=== PATIENT | male | born 2005 | race Caucasian/White ===

== ENCOUNTER 2025-01-10 12:53 | Observation (INO) ==
[2025-01-10 13:36] LABS: Appearance Urine Clear (Clear); Glucose Urine UA 3+ (Negative)
[2025-01-10 13:38] LABS: Hematocrit (blood only) 44.0 % (42.0-52.0); Hemoglobin 15.8 g/dl (14.0-18.0); Immature Granulocytes # (auto) 0.02 K/uL (0.01-0.20); Immature Granulocytes % (auto) 0.5 %; Mean Corpuscular Hemoglobin 32.2 pg (25.0-34.0); Mean Corpuscular Volume 89.6 fL (80.0-100.0); Platelet Count 218 K/uL (130-400); RDW Standard Deviation 38.7 fL (36.4-46.3); Red Blood Count 4.91 M/uL (4.70-6.10); White Blood Count 4.34 K/ul (4.8-10.8)
[2025-01-10] MEDS: SODIUM CHLORIDE 0.9% 1,000 ML IV ONE (13:38)
--- NOTE | 2025-01-10 13:55 | Emergency Department Note ---
Impression & Plan Acute hyperglycemia, Noncompliance with medications, Depression ED Provider Note NAME: MIKE ESTRADA AGE: 19 SEX: M : 2005 ARRIVES VIA: Walk-In INFORMANT: Patient, the patient's mother ED PROVIDER(S): Conrado Cerda DO CHIEF COMPLAINT: Hyperglycemia HPI: The patient is a 19-year-old male who presented to the emergency department for an evaluation of hyperglycemia. The patient recently transitioned back to subcu insulin. He states that he has been using his insulin but his blood sugars are very difficult to control. The patient went to see his derrick worker today and was sent to the emergency department for admission. The patient denies having any chest pain. He denies having any nausea or vomiting. He denies having any fever or chills. He has had some polyuria polydipsia. ROS: See above HPI for pertinent positives & negatives. A total of 10 systems reviewed and were otherwise negative. PAST MEDICAL HISTORY: See Below PAST SURGICAL HISTORY: See Below FAMILY HISTORY: See Below SOCIAL HISTORY: See Below HOME MEDICATIONS: See Below ALLERGIES: See Below VITALS: See Below PHYSICAL EXAMINATION: GENERAL: Patient is awake alert in no acute distress patient is resting comfortably and showing no signs of anxiety EYES: The conjunctivae are clear. The pupils are round and reactive. EARS, NOSE, MOUTH AND THROAT: The nose is without any evidence of any deformity. NECK: The neck is nontender and supple. RESPIRATORY: Normal respiratory effort is noted there is no evidence of wheezing rhonchi or rales CARDIOVASCULAR: Regular rate and rhythm noted there no murmurs rubs or gallops normal S1 normal S2. GASTROINTESTINAL: The abdomen is soft. Abdomen is nontender. MUSCULOSKELETAL/EXTREMITIES: There is no evidence of gross deformity full range of motion is noted in the hips and shoulders. SKIN: There is no obvious evidence of any rash. There are no petechiae, pallor or cyanosis noted. NEUROLOGIC: Patient is awake alert and oriented x3 strength is symmetric patellar reflexes are 2+ bilaterally MEDICAL DECISION MAKING: The patient is a 19-year-old male who has a history of insulin-dependent diabetes who presented to the emergency department for an evaluation of elevated blood sugar. The patient presented directly from his derrick worker office. The patient was felt to be noncompliant with medications and has been very depressed. His derrick worker was very concerned about this situation and was concerned for the patient's safety as well as the patient's mental health. For this reason I discussed the patient's condition with the on-call [facility]. They have agreed to evaluate the patient in the emergency department for further management and disposition. The patient was treated with IV insulin and IV fluids. Blood sugar was significantly improved. Triage Nursing notes reviewed. Prior medical records reviewed Vital Signs: reviewed and remarkable for no significant abnormalities Differential diagnosis: Infection, dehydration, metabolic abnormality, hypo/hyperglycemia, electrolyte disturbance, anemia, hypoxia, cardiac sources, intracerebral event, toxicologic, neurologic, as well as other pathologies. ER treatment provided: See below Diagnostics interpreted by me: ECG: none Cardiac Monitoring: An order was placed for continuous cardiac monitoring. The monitor shows a rate of 77 beats with sinus rhythm. Laboratory studies: As stated above and show below. Imaging studies: See below. Consultation(s): I discussed this case with Marina who is on for the [facility] group. Past Med/Surg History Problem List (Updated 01/10/25 @ 15:16 by Conrado Cerda DO) Depression (Acute) Noncompliance with medications (Acute) Acute hyperglycemia (Acute) Type 1 diabetes mellitus Family History Other No history of diabetes mellitus Social History Smoking Status: Never smoker Preferred Language: Nigerien Feels Safe at Home: Yes Allergies Allergies Allergy/AdvReac Type Severity Reaction Status Date / Time No Known Allergies Allergy Verified 01/02/25 11:31 Home Meds Previous Rx's Medication Instructions Recorded blood-glucose sensor (Dexcom G6 #9 ea 08/16/24 Sensor device) blood-glucose transmitter (Dexcom #1 ea 09/05/24 G6 Transmitter device) insulin aspart U-100 100 unit/mL See Rx Instructions subcut DAILY 12/04/24 subcutaneous solution (Novolog #50 mL U-100 Insulin aspart) acetone (urine) test (Ketone Urine #25 ea 12/07/24 Test strips) insulin aspart U-100 100 unit/mL 1 sliding scale dose subcut 12/07/24 (3 mL) subcutaneous pen (Novolog USEASDIRECTD #15 mL FlexPen U-100 Insulin aspart) insulin glargine 100 unit/mL (3 14 unit (0.14 mL) subcut QAM #15 mL 12/07/24 mL) subcutaneous pen (Basaglar KwikPen U-100 Insulin) pen needle, diabetic 32 gauge x #200 ea 12/07/24" glucagon 1 mg/0.2 mL subcutaneous 1 mg (0.2 mL) subcut ONCE #0.2 mL 01/02/25 auto-injector (Gvoke HypoPen 1-Pack) Results & Data (ED) Vital Signs Vital Signs - 24 hr 01/10/25 13:10 01/10/25 13:40 01/10/25 15:11 Temperature 36.5 C Temperature Source Oral Pulse Rate 80 78 Pulse Rate [Apical] 77 Respiratory Rate 16 18 Respiratory Effort / Characteristics Non-Labored Spontaneous Non-Labored Spontaneous Respiratory Depth Normal Normal Blood Pressure 130/95 Blood Pressure [Right Arm] 126/94 Blood Pressure Mean 106 Blood Pressure Mean [Right Arm] 104 Blood Pressure Position [Right Arm] Sitting Pulse Oximetry 99 98 Oxygen Delivery Method Room Air Room Air Sepsis Recent Fever Within 48 Hours No Sepsis New/Unexplained Change in Mental Status No Sepsis Action Taken by Nursing No Action Required Home Medications Current Medication List: was personally reviewed by me Laboratory Data Attestation: I reviewed the patient's lab results. 01/10/25 13:20 01/10/25 13:20 Lab Results 01/10/25 01/10/25 01/10/25 Range/Units 13:18 13:20 14:15 WBC 4.34 L (4.8-10.8) K/ul RBC 4.91 (4.70-6.10) M/uL Hgb 15.8 (14.0-18.0) g/dl Hct 44.0 (42.0-52.0) % MCV 89.6 (80.0-100.0) fL MCH 32.2 (25.0-34.0) pg MCHC 35.9 (32.0-36.0) g/dL RDW Std Deviation 38.7 (36.4-46.3) fL RDW Coeff of Juan 11.9 (11.5-14.5) % Plt Count 218 (130-400) K/uL MPV 9.6 (9.4-12.4) fL Immature Gran % (Auto) 0.5 % Neut % (Auto) 65.2 % Lymph % (Auto) 21.4 % Dixon % (Auto) 8.5 % Eos % (Auto) 3.5 % Baso % (Auto) 0.9 % Neut # (Auto) 2.83 (1.40-6.50) K/uL Lymph # (Auto) 0.93 L (1.20-3.40) K/uL Dixon # (Auto) 0.37 (0.11-0.59) K/uL Eos # (Auto) 0.15 (0.00-0.50) K/uL Baso # (Auto) 0.04 (0.00-0.20) K/uL Immature Gran # (Auto) 0.02 (0.01-0.20) K/uL Sodium 136 (136-145) mmol/L Potassium 3.9 (3.5-5.1) mmol/L Chloride 101 (98-107) mmol/L Carbon Dioxide 29 (21-32) mmol/L Anion Gap 6 (3-11) BUN 15 (6-23) mg/dl Creatinine 0.70 (0.6-1.4) mg/dl Est Cr Clr Drug Dosing 123.6 ml/min eGFR 136.12 BUN/Creatinine Ratio 21.4 H (10-20) Glucose 380 H* (70-99(Fasting)) mg/dl POC Glucose 379 H* 255 H (70-99) mg/dl Calcium 8.9 (8.6-10.3) mg/dl Total Bilirubin 0.8 (0.2-1.0) mg/dl AST 18 (13-39) U/L ALT 16 (7-52) U/L Alkaline Phosphatase 132 H (34-104) U/L Total Protein 6.6 (6.0-8.3) gm/dl Albumin 4.4 (3.4-5.0) gm/dl Globulin 2.2 L (2.5-4.0) gm/dl Albumin/Globulin Ratio 2.0 (0.9-2) Urine Color Yellow Urine Appearance Clear (Clear) Urine pH 7.5 (4.5-7.5) Ur Specific Blanket 1.035 H (1.000-1.030) Urine Protein Negative (Negative) Urine Glucose (UA) 3+ H (Negative) Urine Ketones Negative (Negative) Urine Blood Negative (Negative) Urine Nitrite Negative (Negative) Urine Bilirubin Negative (Negative) Urine Urobilinogen Negative (Negative) Ur Leukocyte Esterase Negative (Negative) Urine Comment 01/10/25 Range/Units 15:05 WBC (4.8-10.8) K/ul RBC (4.70-6.10) M/uL Hgb (14.0-18.0) g/dl Hct (42.0-52.0) % MCV (80.0-100.0) fL MCH (25.0-34.0) pg MCHC (32.0-36.0) g/dL RDW Std Deviation (36.4-46.3) fL RDW Coeff of Juan (11.5-14.5) % Plt Count (130-400) K/uL MPV (9.4-12.4) fL Immature Gran % (Auto) % Neut % (Auto) % Lymph % (Auto) % Dixon % (Auto) % Eos % (Auto) % Baso % (Auto) % Neut # (Auto) (1.40-6.50) K/uL Lymph # (Auto) (1.20-3.40) K/uL Dixon # (Auto) (0.11-0.59) K/uL Eos # (Auto) (0.00-0.50) K/uL Baso # (Auto) (0.00-0.20) K/uL Immature Gran # (Auto) (0.01-0.20) K/uL Sodium (136-145) mmol/L Potassium (3.5-5.1) mmol/L Chloride (98-107) mmol/L Carbon Dioxide (21-32) mmol/L Anion Gap (3-11) BUN (6-23) mg/dl Creatinine (0.6-1.4) mg/dl Est Cr Clr Drug Dosing ml/min eGFR BUN/Creatinine Ratio (10-20) Glucose (70-99(Fasting)) mg/dl POC Glucose 157 H (70-99) mg/dl Calcium (8.6-10.3) mg/dl Total Bilirubin (0.2-1.0) mg/dl AST (13-39) U/L ALT (7-52) U/L Alkaline Phosphatase (34-104) U/L Total Protein (6.0-8.3) gm/dl Albumin (3.4-5.0) gm/dl Globulin (2.5-4.0) gm/dl Albumin/Globulin Ratio (0.9-2) Urine Color Urine Appearance (Clear) Urine pH (4.5-7.5) Ur Specific Blanket (1.000-1.030) Urine Protein (Negative) Urine Glucose (UA) (Negative) Urine Ketones (Negative) Urine Blood (Negative) Urine Nitrite (Negative) Urine Bilirubin (Negative) Urine Urobilinogen (Negative) Ur Leukocyte Esterase (Negative) Urine Comment Administered Medications Discontinued Medications Sodium Chloride (Nss) 1,000 mls @ 999 mls/hr IV .Q1H1M ONE Stop: 01/10/25 14:32 Last Admin: 01/10/25 13:38 Dose: 999 mls/hr Documented By: OMER Insulin Human Regular (Novolin-R Insulin Per Unit Charge) 10 units IV NOW STA Stop: 01/10/25 14:12 Last Admin: 01/10/25 14:19 Dose: Not Given Documented By: DIGNA Insulin Human Regular (Novolin-R Insulin Per Unit Charge) 4 units IV NOW STA Stop: 01/10/25 14:18 Last Admin: 01/10/25 14:21 Dose: 4 units Documented By: BLANQUITA Co-signed By: DIGNA Discharge Plan Visit Data Chief Complaint: Hyperglycemia Stated Complaint: HYPOLGLCEMIA ED Provider: Conrado Cerda Discharge Problem: Acute hyperglycemia, Noncompliance with medications, Depression Patient Disposition: Being Evaluated by Hospitalist Condition: Good Forms Stand Alone Forms: My [facility] [employer] Prescriptions Prescriptions: No Action (DME) Dexcom G6 Sensor Device See Rx Instructions .Route Qty: 9 3RF Rx Instructions: change sensor every 10 days (DME) Dexcom G6 Transmitter Device See Rx Instructions .Route Qty: 1 3RF Rx Instructions: To be used with Dexcom insulin glargine [Basaglar KwikPen U-100 Insulin] 100 unit/mL (3 mL) insulin pen 14 unit subcut QAM Qty: 15 3RF insulin aspart U-100 [Novolog FlexPen U-100 Insulin] 100 unit/mL (3 mL) insulin pen 1 sliding scale dose subcut USEASDIRECTD Qty: 15 3RF Rx Instructions: per sliding scale; not to exceed 30 units per day (DME) Ketone Urine Test Strip See Rx Instructions .ROUTE .MEDSUPPLY Qty: 25 3RF Rx Instructions: check for ketones if blood sugar over 300mg/dL (DME) pen needle, diabetic 32 gauge x 5/32" needle See Rx Instructions .ROUTE .MEDSUPPLY Qty: 200 11RF Rx Instructions: use new needle with each injection 4x daily Gvoke HypoPen 1-Pack 1 mg/0.2 mL auto-injector 1 mg subcut ONCE Qty: 0.2 3RF Rx Instructions: for use with severe hypoglycemia insulin aspart U-100 [Novolog U-100 Insulin aspart] 100 unit/mL solution See Rx Instructions subcut DAILY Qty: 50 3RF Rx Instructions: To use up to 50 units a day with insulin pump. Referrals Referrals: Tiff Marie MD [Primary Care Provider] -
[2025-01-10 14:09] LABS: Alanine Aminotransferase 16.0 U/L (7-52); Albumin Globulin Ratio 2.0 (0.9-2); Alkaline Phosphatase 132.0 U/L (34-104); Anion Gap 6.0 (3-11); Bilirubin,Total 0.8 mg/dl (0.2-1.0); Blood Urea Nitrogen 15.0 mg/dl (6-23); Calcium 8.9 mg/dl (8.6-10.3); Carbon Dioxide 29.0 mmol/L (21-32); Chloride 101.0 mmol/L (98-107); Creatinine Clr Calc Pharmacy 123.6 ml/min; Globulin 2.2 gm/dl (2.5-4.0); Glucose 380.0 mg/dl (70-99(Fasting)); Potassium 3.9 mmol/L (3.5-5.1); Sodium 136.0 mmol/L (136-145); Total Protein 6.6 gm/dl (6.0-8.3)
[2025-01-10] MEDS: NovoLIN-R INSULIN PER UNIT CHARGE IV STA ×2 (14:19→14:21)
[2025-01-10 15:21] LABS: Base Excess VBG 1.9 mEq/L; HCO3 VBG 29 mmol/L; Oxygen Saturation VBG < 60.0 %; PCO2 VBG 55 mmHg (38-50); PO2 VBG 21 mmHg; pH VBG 7.33 (7.36-7.41)
--- NOTE | 2025-01-10 16:06 | History & Physical Report ---
Date of Service January 10, 2025 Assessment & Plan (1) Type 1 diabetes mellitus: (2) Acute hyperglycemia: Plan This is a 19-year-old male with significant past medical history of uncontrolled type 1 diabetes mellitus who presents to ED at the referral of his poultry husbandman due to uncontrolled blood sugars as well as concern for possible depression. #Uncontrolled T1DM with hyperglycemia admit to medical Lantus/novolog per protocol glycemic pharmacy consult pt follows with [facility] [place] [facility] Devin Hood and Lyubov Carmelita NSS + 20meq KCL x 1 L pt reports poor diet, will consult campground cleaning attendant A1C pending #Possible Depression pt with flat affect, family reports feels depressed +anhedonia, NO SI or HI currently declining psych eval, this needs re addressed if he would be willing as I think this is playing a role in his T1DM as well #DVT ppx: ambulatory FULL CODE PCP: Dr. Marie Dispo: admit to medical Pt was seen and examined in collaboration with Dr. Batista, please see addendum I spent a total of 50 minutes coordinating, documenting and providing care for this patient excluding time spent in the performance of separately billed services or time spent by another provider/QHP. History of Present Illness Chief Complaint: Referred by poultry husbandman Primary Care Provider: Tiff Marie MD This is a 19-year-old male with significant past medical history of uncontrolled type 1 diabetes mellitus who presents to ED at the referral of his poultry husbandman due to uncontrolled blood sugars as well as concern for possible depression. His blood sugars are consistently running in the 300-400 range. Family member is at bedside who also helps elicit hx. Pt reports very stressful job. Working in 100 degree conditions at [employer]. Typically schedule is 4p-2a, then he is up til 5am until he can fall asleep. He doesn't sleep much. His eating habits are poor due to working. He reports a very poor diet. Currently using basal bolus insulin. He used the omnipod before, but he has no fat and it wouldn't stay on. He denies recent illness. Denies f/c/s, chest pain, sob, n/v/d. Family at bedside reports n/v on wednesday after work. He has been drinking and urinating a lot. Denies dysuria, increased urg, hematuria, melena. He has lack of interest in his hobbies. Family at bedside reports he may be depressed. He tried talking to someone before and he said it didn't work, they didn't let him talk. He is unsure if he is depressed. He states affordability of insulin isn't an issue. Allergies Allergy/AdvReac Type Severity Reaction Status Date / Time No Known Allergies Allergy Verified 01/02/25 11:31 Home Medications Medication Instructions Recorded Confirmed Type blood-glucose sensor (Dexcom G6 #9 ea 08/16/24 01/10/25 Rx Sensor device) blood-glucose transmitter (Dexcom #1 ea 09/05/24 01/10/25 Rx G6 Transmitter device) insulin aspart U-100 100 unit/mL See Rx Instructions subcut DAILY 12/04/24 01/10/25 Rx subcutaneous solution (Novolog #50 mL U-100 Insulin aspart) acetone (urine) test (Ketone Urine #25 ea 12/07/24 01/10/25 Rx Test strips) insulin aspart U-100 100 unit/mL 1 sliding scale dose subcut 12/07/24 01/10/25 Rx (3 mL) subcutaneous pen (Novolog USEASDIRECTD #15 mL FlexPen U-100 Insulin aspart) insulin glargine 100 unit/mL (3 14 unit (0.14 mL) subcut QAM #15 mL 12/07/24 01/10/25 Rx mL) subcutaneous pen (Basaglar KwikPen U-100 Insulin) pen needle, diabetic 32 gauge x #200 ea 12/07/24 01/10/25 Rx 5/32" glucagon 1 mg/0.2 mL subcutaneous 1 mg (0.2 mL) subcut ONCE #0.2 mL 01/02/25 01/10/25 Rx auto-injector (Gvoke HypoPen 1-Pack) Past Med/Surg History Problem List (Updated 01/10/25 @ 16:05 by Marina Dorantes PA-C) Acute hyperglycemia (Acute) Medical History (Updated 01/10/25 @ 16:05 by Marina Dorantes PA-C) Depression Noncompliance with medications Type 1 diabetes mellitus Surgical History (Updated 01/10/25 @ 16:55 by Marina Dorantes PA-C) No pertinent past surgical history Family History (Updated 01/10/25 @ 16:56 by Marina Dorantes PA-C) Other No history of diabetes mellitus Psoriatic arthritis Social History (Updated 01/10/25 @ 16:56 by Marina Dorantes PA-C) Smoking Status: Never smoker Hx Alcohol Use: No Hx Substance Use: No Preferred Language: Algerian Feels Safe at Home: Yes Review of Systems Review of Systems: All systems reviewed & are unremarkable except as noted in HPI & below Physical Exam Physical Exam: Constitutional: very thin, minimal muscle mass, vitals as above, NAD, sitting up in bed, pleasant, conversing easily Head: Normocephalic, Atraumatic Eyes: PERRL, conjunctivae normal, anicteric sclerae ENMT: external ear and nose normal, oropharynx normal Neck: trachea midline, no thyromegaly normal visual inspection Respiratory: normal respiratory effort, lungs clear to auscultation, no wheeze, rales, rhonchi. Cardiovascular: RRR, no murmur, no edema Chest: normal inspection of chest Abdomen: normal bowel sounds, soft, nontender Musculoskeletal: no cyanosis or clubbing, extremities motor strength 5/5 Skin: no rashes, warm and dry normal turgor Neurologic: no face palsy, no dysarthria CN's II-XI intact bilaterally and moves all extremities Psychiatric: A+Ox3, very flat affect poor eye contact Results & Data Results & Data Vital Signs (Past 12 Hours) Vital Signs Temp Pulse Pulse Resp BP BP Pulse Ox 01/10/25 15:11 77 18 126/94 98 01/10/25 13:40 78 01/10/25 13:10 36.5 C 80 16 130/95 99 O2 Del Method 01/10/25 15:11 Room Air 01/10/25 13:40 01/10/25 13:10 Room Air Laboratory Results I have independently reviewed and interpreted patient's admitting labs including CBC, CMP, vbg, UA Medications Administered Medication List Discontinued Medications Sodium Chloride (Nss) 1,000 mls @ 999 mls/hr IV .Q1H1M ONE Stop: 01/10/25 14:32 Last Infusion: 01/10/25 15:17 Dose: Infused Documented By: Admin: 01/10/25 13:38 Dose: 999 mls/hr Documented By: CC Insulin Human Regular (Novolin-R Insulin Per Unit Charge) 10 units IV NOW STA Stop: 01/10/25 14:12 Last Admin: 01/10/25 14:19 Dose: Not Given Documented By: DIGNA Insulin Human Regular (Novolin-R Insulin Per Unit Charge) 4 units IV NOW STA Stop: 01/10/25 14:18 Last Admin: 01/10/25 14:21 Dose: 4 units Documented By: BLANQUITA Co-signed By: DIGNA COVID-19 Results Results COVID-19 Adm Lab Results: RBC 4.91 M/uL (4.70-6.10) 01/10/25 WBC 4.34 K/ul (4.8-10.8) L 01/10/25 Hgb 15.8 g/dl (14.0-18.0) 01/10/25 Hct 44.0 % (42.0-52.0) 01/10/25 Plt Count 218 K/uL (130-400) 01/10/25 Neutrophils (%) (Auto) 65.2 % 01/10/25 Lymphocytes (%) (Auto) 21.4 % 01/10/25 Monocytes # (Auto) 0.37 K/uL (0.11-0.59) 01/10/25 Eosinophils # (Auto) 0.15 K/uL (0.00-0.50) 01/10/25 Immature Granulocyte % (Auto) 0.5 % 01/10/25 Neutrophils # (Auto) 2.83 K/uL (1.40-6.50) 01/10/25 Lymphocytes # (Auto) 0.93 K/uL (1.20-3.40) L 01/10/25 Monocytes # (Auto) 0.37 K/uL (0.11-0.59) 01/10/25 Eosinophils # (Auto) 0.15 K/uL (0.00-0.50) 01/10/25 Basophils # (Auto) 0.04 K/uL (0.00-0.20) 01/10/25 Immature Granulocyte # (Auto) 0.02 K/uL (0.01-0.20) 5 Na 136 mmol/L (136-145) 01/10/25 K 3.9 mmol/L (3.5-5.1) 01/10/25 Cl 101 mmol/L (98-107) 01/10/25 CO2 29 mmol/L (21-32) 01/10/25 Anion Gap 6 (3-11) 01/10/25 BUN 15 mg/dl (6-23) 01/10/25 Creatinine 0.70 mg/dl (0.6-1.4) 01/10/25 BUN/Creatinine Ratio 21.4 (10-20) H 01/10/25 Glucose Level 380 mg/dl (70-99(Fasting)) H* 01/10/25 Ca 8.9 mg/dl (8.6-10.3) 01/10/25 Total Bilirubin 0.8 mg/dl (0.2-1.0) 01/10/25 AST/SGOT 18 U/L (13-39) 01/10/25 ALT/SGPT 16 U/L (7-52) 01/10/25 Alkaline Phosphatase 132 U/L (34-104) H 01/10/25 Total Protein 6.6 gm/dl (6.0-8.3) 01/10/25 Albumin 4.4 gm/dl (3.4-5.0) 01/10/25 Globulin 2.2 gm/dl (2.5-4.0) L 01/10/25 Albumin/Globulin Ratio 2.0 (0.9-2) 01/10/25 Code Status & VTE Plan Code Status FULL CODE VTE Prophylaxis Plan VTE Prophylaxis will be ordered: No Supervising Physician Co-Signing Physician Notes Patient seen and examined independently. He is lying in the bed comfortably; not in distress. He was referred from his outpatient endocrine neurology provider for admission for uncontrolled type 1 diabetes mellitus. Started on insulin glargine and NovoLog; pharmacy and campground cleaning attendant consulted. Continue to monitor blood glucose levels. I have reviewed the advanced practitioner's documentation, and I agree with, and take responsibility for the plan of care I spent a total of 30 minutes coordinating, documenting, and providing care for this patient excluding time spent in the performance of separately billed services. All of the aforementioned completed while collaborating with the assigned advanced practitioner for a full treatment plan (1) Type 1 diabetes mellitus Diabetes mellitus complication status: without complication Qualified Code(s): E10.9 - Type 1 diabetes mellitus without complications
[2025-01-10 17:42] LABS: Thyroid Stimulating Hormone 1.968 uIu/ml (0.300-4.500)
[2025-01-10 17:43] LABS: Hemoglobin A1C 15.1 % (4.5-5.6)
[2025-01-10] MEDS ORDERED: ACETAMINOPHEN 325 MG TAB PO PRN (18:23)
[2025-01-10] MEDS ORDERED: POLYETHYLENE (MIRALAX) 17 GM PACK PO PRN (18:23)
[2025-01-10] MEDS ORDERED: ONDANSETRON INJ 2 MG/ML 2 ML VIAL IV PRN (18:23)
[2025-01-10] MEDS ORDERED: CARBOHYDRATES FOR HYPOGLYCEMIA PO PRN (18:23)
[2025-01-10] MEDS ORDERED: GLUCAGON FOR INJ 1 MG VIAL SQ PRN (18:23)
[2025-01-10] MEDS ORDERED: GLUCOSE 10 TAB/TUBE PO PRN (18:23)
[2025-01-10] MEDS ORDERED: DEXTROSE 50% 50 ML SYRINGE IV PRN (18:23)
[2025-01-10] MEDS ORDERED: GLUCOSE 40% GEL 15 GM TUBE PO PRN (18:23)
[2025-01-10] MEDS ORDERED: PHARMACY GLYCEMIC MGMT CONSULT PRN (18:23)
[2025-01-10] MEDS: INSULIN ASPART PER UNIT CHARGE SC SCH (19:42)
[2025-01-10] MEDS: NSS + 20MEQ KCL 20 MEQ/1,000 ML BAG IV SCH (19:43)
[2025-01-10] MEDS ORDERED: LANTUS PER UNIT CHARGE SQ SCH (21:00)
[2025-01-11] MEDS: INSULIN ASPART PER UNIT CHARGE SC SCH ×2 (00:14→18:27)
[2025-01-11 07:20] VITALS: O2SAT 100
[2025-01-11] MEDS: LANTUS PER UNIT CHARGE SC ONE (08:43)
[2025-01-11 08:55] LABS: Hematocrit (blood only) 45.0 % (42.0-52.0); Hemoglobin 15.9 g/dl (14.0-18.0); Immature Granulocytes # (auto) 0.03 K/uL (0.01-0.20); Immature Granulocytes % (auto) 0.6 %; Mean Corpuscular Hemoglobin 32.4 pg (25.0-34.0); Mean Corpuscular Volume 91.8 fL (80.0-100.0); Platelet Count 218 K/uL (130-400); RDW Standard Deviation 40.0 fL (36.4-46.3); Red Blood Count 4.90 M/uL (4.70-6.10); White Blood Count 5.30 K/ul (4.8-10.8)
--- NOTE | 2025-01-11 09:22 | Pharmacy Report ---
Pharmacy Glycemic Short Note 2 - Date of Service January 11, 2025 - Glycemic Short BSG Results (Last 24 hours): 01/10/25 01/10/25 01/10/25 13:18 13:20 14:15 Glucose 380 H* POC Glucose 379 H* 255 H 01/10/25 01/10/25 01/10/25 15:05 17:35 19:00 Glucose POC Glucose 157 H 176 H 243 H 01/10/25 01/10/25 01/11/25 22:08 22:10 00:02 Glucose POC Glucose 301 H* 291 H 180 H 01/11/25 01/11/25 04:10 07:17 Glucose POC Glucose 175 H 226 H OUTPATIENT ANTIDIABETIC REGIMEN: * Lantus 14 units SC daily * Insulin aspart (CF of 50 unit/mg/dL, carb ratio 1:20) HbA1c: 15.1% (01/10/25) ASSESSMENT: * ED is a 19 year old male w/ T1DM (diagnosed in 2017) who was recently transitioned from insulin pump to SC basal/bolus regimen * Patient saw plumber and tinner yesterday who recommended hospital admission for glucose control and psychiatry evaluation * Hyperglycemic on presentation, which improved somewhat overnight * Will initiate insulin regimen similar to outpatient regimen initially and adjust as needed * Per RN patient's mother has been providing additional food to patient and he has snacks in his room * Will attempt to cover carbs to the best of our ability * Blood sugars trended up this morning and decision was made to utilize temporary insulin infusion * However, patient is refusing this modality. Will maintain SC basal/bolus regimen at this time. No concerns of DKA at this time. PLAN FOR INPATIENT GLYCEMIC CONTROL: * Basal insulin * Lantus 15 units SQ daily * Lantus 0-5 units SC HS * Bolus insulin * NovoLog per scale ACHS or Q6hrs while NPO * Goal Range: Low 110 mg/dL - High 140 mg/dL * Correction Factor: 45 mg/dL/unit * Nutritional / Prandial insulin per carb ratio of 1 unit per 15 grams CHO consumed * ,04 checks with same parameters
[2025-01-11 09:34] LABS: Alanine Aminotransferase 16.0 U/L (7-52); Albumin Globulin Ratio 1.8 (0.9-2); Alkaline Phosphatase 84.0 U/L (34-104); Anion Gap 5.0 (3-11); Bilirubin,Total 0.8 mg/dl (0.2-1.0); Blood Urea Nitrogen 11.0 mg/dl (6-23); Calcium 9.1 mg/dl (8.6-10.3); Carbon Dioxide 30.0 mmol/L (21-32); Chloride 103.0 mmol/L (98-107); Creatinine Clr Calc Pharmacy 137.9 ml/min; Globulin 2.4 gm/dl (2.5-4.0); Glucose 365.0 mg/dl (70-99(Fasting)); Magnesium 1.8 mg/dl (1.7-2.4); Potassium 3.9 mmol/L (3.5-5.1); Sodium 138.0 mmol/L (136-145); Total Protein 6.8 gm/dl (6.0-8.3)
[2025-01-11] MEDS ORDERED: STAT IV Infusion **Titration per Protocol STA (12:10)
[2025-01-11] MEDS ORDERED: INSULIN PROTOCOL GOAL RANGE ONE (12:10)
[2025-01-11] MEDS ORDERED: SEVERE STRESS LEVEL ONE (12:10)
[2025-01-11] MEDS ORDERED: INSULIN REGULAR 250 UNITS in SODIUM CHLORIDE 0.9% 247.5 ML IV SCH (12:15)
[2025-01-11] MEDS ORDERED: INSULIN ASPART PER UNIT CHARGE SC ONE (12:15)
--- NOTE | 2025-01-11 14:29 | Hospitalist Progress Note ---
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 Uncontrolled T1DM with hyperglycemia Medical non compliance comes in due to elevated blood glucose as OP. pt follows with [facility] Endocrinology Devin Hood and Lyubov Carmelita A1c 15.1 Pt not able to comment how much insulin he uses at home Per d/w pt's mother, possible noncompliance with insulin at home. Monitor and replete lytes. chemical educator consult Pt would like nutrition consult as well. Lantus/novolog per protocol glycemic pharmacy on board Possible Depression pt with flat affect, family reports feels depressed +anhedonia, NO SI or HI Agreed to psych eval, consult placed. #DVT ppx: ambulatory FULL CODE PCP: Dr. Marie Dispo: admit to medical I spent a total of 50 minutes coordinating, documenting and providing care for this patient excluding time spent in the performance of separately billed services or time spent by another provider/QHP. Admission and Anticipated Discharge Date Admission Date: January 10, 2025 Subjective Patient was seen and examined at bedside. Patient was lying in bed, on RA, NAD sitting comfortably. Patient's mother at bedside who was also updated on plan of care. Pt denies sore throat/cough/chest pain/abdominal pain/nausea/vomiting today. Physical Exam Physical Exam: Constitutional: Thin but doesn't appear cachectic, NAD, pleasant, conversing easily Head: Normocephalic, Atraumatic Eyes: PERRL, conjunctivae normal, anicteric sclerae ENMT: external ear and nose normal, oropharynx normal Neck: trachea midline, no thyromegaly normal visual inspection Respiratory: normal respiratory effort, lungs clear to auscultation, no wheeze, rales, rhonchi. Cardiovascular: RRR, no murmur, no edema Chest: normal inspection of chest Abdomen: normal bowel sounds, soft, nontender Musculoskeletal: no cyanosis or clubbing, extremities motor strength 5/5 Skin: no rashes, warm and dry normal turgor Neurologic: no face palsy, no dysarthria CN's II-XI intact bilaterally and moves all extremities Psychiatric: A+Ox3, very flat affect poor eye contact Results & Data Results & Data Vital Signs (Past 12 Hours) Vital Signs Temp Pulse Resp BP Pulse Ox O2 Del Method 01/11/25 07:19 36.4 C L 52 L 16 114/76 100 Room Air (1) Type 1 diabetes mellitus Diabetes mellitus complication status: without complication Qualified Code(s): E10.9 - Type 1 diabetes mellitus without complications
--- NOTE | 2025-01-11 14:39 | Psychiatric Consultation ---
Date of Consultation January 11, 2025 Impression / Recommendations Impression Diagnostically consistent with generalized anxiety disorder and suspect anxiety contributes to his difficulty managing his diabetes. It's possible he is minimizing depression symptoms, and PHQ-9 not tolerated due to his frustration about blood sugar management, but he engaged well with interview, seemed open and no evidence for psychomotor symptoms, nor hopelessness and no SI evident on assessment. Individuals with type I diabetes who are forced, due to the nature of their chronic disease, to be vigilant starting at such a young age to their medical condition/blood sugar/meals/exercise/monitoring for lows and highs/attending appointments are at high risk for depression and anxiety. Diabetes-specific distress is common and can present with less optimal self-care or fear-driven decisions (such as allowing their blood sugar to run high to avoid discomfort or fear of dropping too low). Adolescence and young adulthood can be especially challenging developmentally as typically this is a time of experimentation, pushing boundaries and experiencing life with less structure and autonomy which type I diabetes management is often at odd's with. In Prashant's case I suspect that anxiety is contributing to his difficulty with his diabetes management and that therapy, medication (SSRI) and increased support will all be beneficial. He is not interested in an IOP therapy like [facility] at this time but encourage consideration of this in the future should symptoms worsen or not improve with outpatient individual therapy. He is willing for individual therapy and will consider outpatient CM. Discussed medication treatment options in detail with both him and his mother. Discussed risks, benefits and alternatives. He is willing to consider fluoxetine for generalized anxiety. Reviewed side effects including but not limited to: GI, QUINONEZ,vivid dreams, and counseled on black box warning of potential for emergence of or increased SI and need to discontinue and alert supports and providers should this occur or should they feel unsafe. Also discussed importance of seeking emergency care following discharge if this side effect occurs in the future. Overall, I spent a total of 60 minutes with this case including review of chart records, review of labwork, direct evaluation of the patient at bedside, counseling the patient, discussion of the patient with the Nurse and with the hospitalist provider, discussion with the psychiatric liason during clinical rounds, review of collateral historian information from the family and documentation in the electronic health record. (1) CLARITZA (generalized anxiety disorder): (2) Acute hyperglycemia: (3) Type 1 diabetes mellitus: Diabetes mellitus complication status: without complication Qualified Code(s): E10.9 - Type 1 diabetes mellitus without complications Plan -Start fluoxetine 20mg daily po if he agrees to start this, felt to be good starting option given tolerability, potential to lower blood glucose and long- half which lessens concerns with consistent adherence -Psych liason working on outpatient therapy referral -Given information for outpatient mental health CM services -Reviewed [facility] if he becomes interested in the future Psych History Identifying Data Prashant Jarvis is a 19 yo man with a history of uncontrolled type 1 diabetes mellitus who presents to ED at the referral of his onsite health coach due to uncontrolled blood sugars as well as concern for possible depression. Psychiatry consulted for "flat affect, rule out depression". Chief Complaint "I'm not depressed but yeah I get anxious and stressed". History of Present Illness Prashant presents for hospital admission due to elevated blood sugar levels as recommended by his onsite health coach. Per outpatient endocrinology notes he calls into the office frequently (multiple times per week) and is seen in person frequently due to blood sugar changes and concerns about how to dose his insulin since he stopped using a continuous glucose monitor and pump. He notes this curent admission was due to his A1c being "a little bit too high". States he doesn't know what his A1c goal is noting "I don't know, no one ever told me!". He expresses frustration with his current hospital experience citing concerns about the staffs management of his insulin regimen. He reports that the hospital staff have been having him wait 2 hours after eating to check his blood sugar and administer insulin contrary to his usual practice of administering insulin before eating due to his fast metabolism. He feels this has resulted in blood sugar spikes similar to what he was experiencing prior to coming in and so now questions what is the point of stay ing in the hospital. States that he is planning to likely check himself out later today. He denies any recent illness contributing to his elevated blood sugars. He reports a history of stress and anxiety since childhood but denies any depression. He previously tried Adderall which made him feel irritable and "mean to everybody" leading him to discontinue the medication as a child. He expresses nervousness about trying any new psychiatric medications due to this past negative experience but was open to hearing about option of an SSRI and is willing to consider this. He reports that his work and hot conditions have been challenging to manage with his diabetes. He does not currently have a manager case or therapist to help coordinate his care or provide additional support. He is willing to do individual therapy again, prefers one-on-one versus groups and prefers female provider and in person. Medical history is notable for type 1 diabetes diagnosed at age 13 and anxiety since childhood. Additional history per psych liason RN note on 01/11/2025: "Met with patient for consult service. Upon arrival, patient was pacing in room, with angry expression; mother at bedside. Patient remains appropriate and respectful, voices frustration with his current treatment plan/insulin regimen. Patient feels his hospitalization is "a waste of time" and does not wish to stay another night. It was recommended an insulin drip be started to get blood sugar under control and determine his insulin needs, patient is not willing for this. He was initially overwhelmed and not interested in speaking with Tallow Pumper or other provider. He processed with liaison for some time and was agreeable to meet with psychiatrist. Psychiatrist reviewed recommendations (see consult note) . Patient is open to suggestions for individual therapy resources and outpatient blended case management. Mother requested contacting [facility] (therapy) for availability. Liaison aurelia gather information/resources and follow-up with patient." Allergies Allergy/AdvReac Type Severity Reaction Status Date / Time No Known Allergies Allergy Verified 01/02/25 11:31 Home Medications Medication Instructions Recorded Confirmed Type blood-glucose sensor (Dexcom G6 #9 ea 08/16/24 01/10/25 Rx Sensor device) blood-glucose transmitter (Dexcom #1 ea 09/05/24 01/10/25 Rx G6 Transmitter device) insulin aspart U-100 100 unit/mL See Rx Instructions subcut DAILY 12/04/24 01/10/25 Rx subcutaneous solution (Novolog #50 mL U-100 Insulin aspart) acetone (urine) test (Ketone Urine #25 ea 12/07/24 01/10/25 Rx Test strips) insulin aspart U-100 100 unit/mL 1 sliding scale dose subcut 12/07/24 01/10/25 Rx (3 mL) subcutaneous pen (Novolog USEASDIRECTD #15 mL FlexPen U-100 Insulin aspart) insulin glargine 100 unit/mL (3 14 unit (0.14 mL) subcut QAM #15 mL 12/07/24 01/10/25 Rx mL) subcutaneous pen (Basaglar KwikPen U-100 Insulin) pen needle, diabetic 32 gauge x #200 ea 12/07/24 01/10/25 Rx " glucagon 1 mg/0.2 mL subcutaneous 1 mg (0.2 mL) subcut ONCE #0.2 mL 01/02/25 01/10/25 Rx auto-injector (Gvoke HypoPen 1-Pack) Patient History Medical History Depression Noncompliance with medications Type 1 diabetes mellitus Surgical History No pertinent past surgical history Family History Other No history of diabetes mellitus Psoriatic arthritis Social History Smoking Status: Never smoker Hx Alcohol Use: No Hx Substance Use: No Preferred Language: Jamaican 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 Beliefs That Will Affect Care: None Current Living Situation: Family Feels Safe at Home: Yes Safety Concerns: Feels Safe At This Time Assistive Devices: Glasses Physical Exam Vital Signs (Past 24 Hours): Last Vital Signs Temp 36.4 C L 01/11/25 07:19 Pulse 52 L 01/11/25 07:19 Resp 16 01/11/25 07:19 BP 114/76 01/11/25 07:19 Pulse Ox 100 01/11/25 07:19 O2 Del Method Room Air 01/11/25 07:19 Coding Level of Care Code 86749 IN/OBS CONSULT LVL 4,60M Diagnoses CLARITZA (generalized anxiety disorder) F41.1 Acute hyperglycemia R73.9 Type 1 diabetes mellitus without complication E10.9 Diabetes mellitus complication status: without complication
[2025-01-11] MEDS: INSULIN HUMAN REGULAR IV BOLUS 2 UNITS in SYRINGE 0 ML IV ONE (16:11)
[2025-01-11] MEDS: INSULIN ASPART PER UNIT CHARGE SC ONE (16:11)
[2025-01-11] MEDS ORDERED: INSULIN ASPART PER UNIT CHARGE SC SCH (16:30)
--- NOTE | 2025-01-11 17:57 | Communication Note ---
Date of Service: January 11, 2025 RN notified me of patient wanting to leave AMA later in the afternoon/early evening. Patient apparently not happy with his blood glucose management. Eli ent and his mom has been explained several times during the day, the need for at least 48 hours before we are able to make recommendation on his insulin need at the time of discharge. It appears that patient has declined insulin drip and Subcutaneous insulin after morning doses today as recommended by glycemic pharmacy. Patient's blood glucose level still high and it has been explained that it would be unsafe for him to go home as I would not be able to properly adjust his insulin need upon discharge. He was also explained that uncontrolled diabetes leads to nausea/vomiting/abdominal pain/diabetic ketoacidosis/HHS, arrhythmia, increased risks of infection including . Patient and his mother voiced understanding. Patient advocate Oscar, patient's RN and psych liaison were also at bedside. Pt alert, oriented and deemed competent to make his own decisions. Patient was getting angry and agitated but was not violent to anybody. We left the room for the patient to calm down and spoke with patient's mother outside the room and tried to explain the situation and I listened to her side of the story along w/ RN's explanation. It appears that there was delay in lunch time insulin today and I explained that it could be due to glycemic pharmacy working on insulin drip behind the scene. This might have made patient angry about the whole situation and his diabetes management while in the hospital. After some time, psych liaison was able to chat with the patient and patient agreed to think about leaving AMA or not. Later on the nursing and patient advocate Oscar notified me that the patient is agreeable to stay for now but would like a different provider tomorrow morning. Total time spent during this discussion: 30 min, separate from AM time.
[2025-01-11] MEDS: LANTUS PER UNIT CHARGE SC SCH (20:55)
[2025-01-12] MEDS: INSULIN ASPART PER UNIT CHARGE SC SCH (00:07)
[2025-01-12 07:52] VITALS: BP 107/74; PULSE 73; RESP 16; TEMP 97.5
[2025-01-12 07:52] LABS: Hematocrit (blood only) 47.3 % (42.0-52.0); Hemoglobin 16.7 g/dl (14.0-18.0); Mean Corpuscular Hemoglobin 31.9 pg (25.0-34.0); Mean Corpuscular Volume 90.3 fL (80.0-100.0); Platelet Count 229 K/uL (130-400); RDW Standard Deviation 39.8 fL (36.4-46.3); Red Blood Count 5.24 M/uL (4.70-6.10); White Blood Count 5.70 K/ul (4.8-10.8)
[2025-01-12] MEDS: LANTUS PER UNIT CHARGE SC SCH (07:53)
[2025-01-12 08:16] LABS: Anion Gap 4.0 (3-11); Blood Urea Nitrogen 12.0 mg/dl (6-23); Calcium 9.7 mg/dl (8.6-10.3); Carbon Dioxide 31.0 mmol/L (21-32); Chloride 104.0 mmol/L (98-107); Creatinine Clr Calc Pharmacy 120.9 ml/min; Glucose 172.0 mg/dl (70-99(Fasting)); Magnesium 1.9 mg/dl (1.7-2.4); Potassium 5.0 mmol/L (3.5-5.1); Sodium 139.0 mmol/L (136-145)
--- NOTE | 2025-01-12 09:51 | Pharmacy Report ---
Pharmacy Glycemic Short Note 2 - Date of Service January 12, 2025 - Glycemic Short BSG Results (Last 24 hours): 01/11/25 01/11/25 01/11/25 11:41 17:30 20:27 Glucose POC Glucose 308 H* 193 H 318 H* 01/12/25 01/12/25 01/12/25 00:06 04:07 07:34 Glucose 172 H POC Glucose 112 H 115 H 01/12/25 07:38 Glucose POC Glucose 150 H OUTPATIENT ANTIDIABETIC REGIMEN: * Lantus 14 units SC daily * Insulin aspart (CF of 50 unit/mg/dL, carb ratio 1:20) HbA1c: 15.1% (01/10/25) ASSESSMENT: 01/12/25: * Blood sugars labile yesterday, which is not surprising given intermittent refusal of insulin yesterday and the fact that we are still trying to determine baseline insulin needs * Received 38 units of insulin (20 units of basal and 18 units of prandial/correctional bolus) * Fasting blood sugar much improved this morning at 150 mg/dL * Will plan to continue w/ similar glycemic regimen today (tightened carb ratio and increased basal) 01/11/25: * ED is a 19 year old male w/ T1DM (diagnosed in 2017) who was recently transitioned from insulin pump to SC basal/bolus regimen * Patient saw surgical assist yesterday who recommended hospital admission for glucose control and psychiatry evaluation * Hyperglycemic on presentation, which improved somewhat overnight * Will initiate insulin regimen similar to outpatient regimen initially and adjust as needed * Per RN patient's mother has been providing additional food to patient and he has snacks in his room * Will attempt to cover carbs to the best of our ability * Blood sugars trended up this morning and decision was made to utilize temporary insulin infusion * However, patient is refusing this modality. Will maintain SC basal/bolus regimen at this time. No concerns of DKA at this time. PLAN FOR INPATIENT GLYCEMIC CONTROL: * Basal insulin * Lantus 18 units SC daily * Bolus insulin * NovoLog per scale ACHS or Q6hrs while NPO * Goal Range: Low 110 mg/dL - High 140 mg/dL * Correction Factor: 45 mg/dL/unit * Nutritional / Prandial insulin per carb ratio of 1 unit per 15 grams CHO consumed
--- NOTE | 2025-01-12 09:55 | Discharge Summary ---
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 Patient was admitted to the hospital. Pharmacy was involved in helping manage his glucose and adjusting his insulin. He was seen by psychiatry who recommended starting Prozac. He was agreeable to this. His sugars became better controlled. Made some adjustments in his basal insulin as well as his carb ratio at meals and a sliding scale. Patient here in the hospital this morning seems motivated to continue with management of his diabetes. Committed to using the insulin pens. He will continue to follow with his outpatient providers. Also encouraged him to continue to follow-up with [facility]. 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 His blood sugars are consistently running in the 300-400 range. Family member is at bedside who also helps elicit hx. Pt reports very stressful job. Working in 100 degree conditions at [employer]. Typically schedule is 4p-2a, then he is up til 5am until he can fall asleep. He doesn't sleep much. His eating habits are poor due to working. He reports a very poor diet. Currently using basal bolus insulin. He used the omnipod before, but he has no fat and it wouldn't stay on. He denies recent illness. Denies f/c/s, chest pain, sob, n/v/d. Family at bedside reports n/v on wednesday after work. He has been drinking and urinating a lot. Denies dysuria, increased urg, hematuria, melena. He has lack of interest in his hobbies. Family at bedside reports he may be depressed. He tried talking to someone before and he said it didn't work, they didn't let him talk. He is unsure if he is depressed. He states affordability of insulin isn't an issue. Admission Exam Per Admitting Provider See H&P Discharge Exam Constitutional: Alert HEENT: Mucous membranes moist. Lungs: Clear to auscultation, decreased, no wheezes rales or rhonchi CV: S1-S2, regular Abdomen: Soft, nontender, nondistended Extremities: No significant edema Neuro: No focal deficits Psych: Cooperative, normal mood Updated Medication List Medication Instructions Recorded Confirmed Type blood-glucose sensor (Dexcom G6 #9 ea 08/16/24 01/10/25 Rx Sensor device) blood-glucose transmitter (Dexcom #1 ea 09/05/24 01/10/25 Rx G6 Transmitter device) acetone (urine) test (Ketone Urine #25 ea 12/07/24 01/10/25 Rx Test strips) insulin aspart U-100 100 unit/mL 1 sliding scale dose subcut 12/07/24 01/10/25 Rx (3 mL) subcutaneous pen (Novolog USEASDIRECTD #15 mL FlexPen U-100 Insulin aspart) pen needle, diabetic 32 gauge x #200 ea 12/07/24 01/10/25 Rx 5/32" glucagon 1 mg/0.2 mL subcutaneous 1 mg (0.2 mL) subcut ONCE #0.2 mL 01/02/25 01/10/25 Rx auto-injector (Gvoke HypoPen 1-Pack) fluoxetine 20 mg capsule (Prozac) 20 mg PO DAILY #30 caps 01/12/25 Rx insulin aspart U-100 100 unit/mL See Rx Instructions .Route 01/12/25 Rx subcutaneous solution (Novolog .COMPLEX #50 mL U-100 Insulin aspart) insulin glargine 100 unit/mL (3 18 unit (0.18 mL) subcut QAM #15 mL 01/12/25 Rx mL) subcutaneous pen Hospital Stay Data Consultations 01/10/25 15:18 ED Decision to Admit Stat 01/11/25 08:56 Consult Psychiatry Routine Diagnostic Imagining Performed Reviewed imaging, laboratory and diagnostic studies. Pertinent findings as below. CBC within normal ranges Electrolytes within normal ranges Creatinine 0.73 Glucose 150 Pending Results Patient Have Any Pending Studies at Discharge: No Discharge Instructions Given to Patient (Per Discharging Provider) As you know, you will need to continually monitor your sugars and make adjustment in your insulin dosing depending on your glucose readings. Continue to encourage you to work with your ceramics test engineer Encourage you to follow-up with the mental health counseling and therapies as this may also help you manage your diabetes and your sugars more effectively Total Time Total Time Spent Total Time Spent (In Minutes): 34
== END 2025-01-12 11:26 | disposition home or self-care (01) | DRG 638 ==
LOC: ED 12:53 → SUATTDRO 15:59 → INTOOBSV 15:59 → 3E 15:59